=== PATIENT | male | born 1935 | race Caucasian/White ===

== ENCOUNTER → 2017-08-01 | Outpatient (CLI) | payer MEDICARE, OTHER ==
[~2017-08-01] MED LIST: ACET500T68 PO; AMLO-99 PO; ASPI-715 PO; ATR10 PO; CALC-756 PO; CIPR-214 PO; DEXL60CA6 PO; DOCU-416 PO; FAMO-67 PO; FISH OIL1 CAP PO; GLUC-130 PO; GLUC100026 PO; HCTZ25 PO; HYDR-318 PO; HYDR-385 PO; IBUP800T37 PO; INSU100C12 SQ; INSU100V24 SQ; INSU100V26 SC; LEV125 PO; LEVO-3 PO; LISI-374 PO; METO100T20 PO; MULT1CAP41 PO; NAPR220C12 PO; OXYC-865 PO; PENI-24 PO; PHEN200T32 PO; PRED5DRO34 OS; RAMI10CA62 PO; SIMV-49 PO
== END ==
LOC: LAB 09:54
PROVIDERS: ATTEND Internal Medicine
DX: E10.9 Type 1 diabetes mellitus without complications (principal)
CPT/HCPCS: 36415; 82040; 82043; 82247; 82310; 82374; 82435; 82565; 82947; 83036; 84075; 84132; 84155; 84295; 84443; 84450; 84460; 84520

== ENCOUNTER → 2018-02-21 | Outpatient (CLI) | payer MEDICARE, OTHER ==
[~2018-02-21] MED LIST changes: +AMLO-113 PO; -AMLO-99 PO
[2018-02-21 09:14] LABS: LDL CHOLESTEROL 50 mg/dl
== END ==
LOC: LAB 08:27
PROVIDERS: ATTEND Internal Medicine
DX: E03.9 Hypothyroidism, unspecified (principal); E78.5 Hyperlipidemia, unspecified; E10.9 Type 1 diabetes mellitus without complications
CPT/HCPCS: 36415; 82040; 82247; 82310; 82374; 82435; 82465; 82565; 82947; 83036; 83718; 84075; 84132; 84155; 84295; 84443; 84450; 84460; 84478; 84520

== ENCOUNTER → 2018-04-05 | Outpatient (CLI) | payer MEDICARE, OTHER | LOC: LAB 15:21 | PROVIDERS: ATTEND Internal Medicine | DX: E03.9 Hypothyroidism, unspecified (principal) | CPT/HCPCS: 36415; 84443 ==

== ENCOUNTER → 2018-06-15 | Outpatient (CLI) | payer MEDICARE, OTHER ==
[~2018-06-15] MED LIST changes: -AMLO-113 PO; +AMLO-127 PO
== END ==
LOC: LAB 16:11
DX: E03.9 Hypothyroidism, unspecified (principal); E10.9 Type 1 diabetes mellitus without complications
CPT/HCPCS: 36415; 83036; 84443

== ENCOUNTER 2018-09-14 00:40 | Day surgery (SDC) | payer MEDICARE, OTHER ==
[~2018-09-14] VITALS: Ht 177.8 cm; Wt 75.3 kg
[~2018-09-14 00:40] MED LIST changes: +AMOX-362 PO
[2018-09-14 08:12] VITALS: BP 147/74
[2018-09-14] MEDS ORDERED: NORMOSOL R SOLN(*) 1000 ML BAG 1,000 ML IV PRN (08:40)
[2018-09-14] MEDS ORDERED: LIDOCAINE/SOD BICARB 8.4% SYR ID ONE (08:40)
[2018-09-14 10:40] VITALS: BP 103/48
--- NOTE | 2018-09-14 10:44 | NUR ---
ABLE TO AROUSE PT. ABLE TO FOLLOW COMMANDS. BITE BLOCK REMOVED. PT. REORIENTED. ENCOURAGED TO REST.
[2018-09-14 11:00] VITALS: BP 121/60
--- NOTE | 2018-09-14 11:04 | NUR ---
1058 PATIENT WAS MOVED TO ROOM AIR AND TO A SEMI FOWLERS POSITION 1109 PATIENT BEGAN DRINKING WATER AND EATING APPLESAUCE
[2018-09-14 11:30] VITALS: BP 123/69
[2018-09-14 11:31] VITALS: BP 142/82
--- NOTE | 2018-09-14 11:38 | NUR ---
1105 IV WAS SALINE LOCKED 1130 FINISHED DISCHARGE INSTRUCTIONS. THEY VERBALIZED UNDERSTANDING 1130 BEGAN DOING ORTHOSTATICS. DENIES ANY DIZZINESS OR LIGHTHEADEDNESS 1131 PATIENT BEGAN STANDING. HE IS STABLE ON HIS FEET 1133 PATIENT BEGAN GETTING DRESSED
--- NOTE | 2018-09-14 11:55 | NUR ---
1130 PATIENT BEGAN DOING ORTHOSTATICS. DENIES ANY DIZZINESS OR LIGHTHEADEDNESS. 1131 PATIENT WAS STABLE ON HIS FEET 1134 PATIENT BEGAN GETTING DRESSED 1145 IV WAS DC'D WITH CATH INTACT 1147 PATIENT USED THE BATHROOM 1155 PATIENT WAS TAKEN OUT AND WAS AMBULATORY ON DISCHARGE. DENIES ANY DIZZINESS OR LIGHTHEADEDNESS. LUNGS ARE CLEAR. BOWEL SOUNDS ARE ACTIVE. STATES THROAT IS SLIGHTLY IRRITATED BUT DENIES ANY PAIN OR NAUSEA. SEE DISCHARGE ASSESSMENT.
== END 2018-09-14 11:55 | disposition home or self-care (01) ==
LOC: OR 00:40
PROVIDERS: ATTEND Internal Medicine Gastroenterology
DX: R13.10 Dysphagia, unspecified (principal); E11.9 Type 2 diabetes mellitus without complications
CPT/HCPCS: 36416; 82948; 88305; 88313; 88342; C1769

== ENCOUNTER → 2018-09-19 | Outpatient (CLI) | payer MEDICARE, OTHER | LOC: LAB 09:27 | PROVIDERS: ATTEND Internal Medicine | DX: E10.9 Type 1 diabetes mellitus without complications (principal); E78.5 Hyperlipidemia, unspecified; I10 Essential (primary) hypertension | CPT/HCPCS: 36415; 82040; 82043; 82247; 82310; 82374; 82435; 82565; 82947; 83036; 84075; 84132; 84155; 84295; 84450; 84460; 84520 ==

== ENCOUNTER → 2018-12-29 | Outpatient (CLI) | payer MEDICARE, OTHER ==
[2018-12-29 11:08] LABS: LDL CHOLESTEROL 57 mg/dl
== END ==
LOC: LAB 10:14
PROVIDERS: ATTEND Internal Medicine
DX: E03.9 Hypothyroidism, unspecified (principal); E78.5 Hyperlipidemia, unspecified; E10.9 Type 1 diabetes mellitus without complications; I10 Essential (primary) hypertension
CPT/HCPCS: 36415; 82040; 82247; 82310; 82374; 82435; 82465; 82565; 82947; 83036; 83718; 84075; 84132; 84155; 84295; 84443; 84450; 84460; 84478; 84520